=== PATIENT | female | born 1965 | race Caucasian/White ===

== ENCOUNTER 2017-08-24 18:27 | Inpatient (IN) | payer BC ==
[~2017-08-24] VITALS: Ht 152.4 cm; Wt 59.6 kg
--- NOTE | ~2017-08-24 | O ---
[place], [place] OPERATIVE NOTE NAME: [facility]Z [id number] UNIT #: [id number] ROOM: 503 DOCTOR: KAUSHIK ESPINOSA MD BIRTHDATE: [birth year] DOS: 08/25/2017 PREOPERATIVE DIAGNOSIS: Acute appendicitis. POSTOPERATIVE DIAGNOSIS: Acute appendicitis. PROCEDURE: Laparoscopic appendectomy. SURGEON: Kaushik Espinosa MD MEDICAL TRANSCRIPTION SUPERVISOR: EVAN. ANESTHESIA: General with endotracheal intubation. INDICATIONS: This is a 52-year-old lady who was admitted with a history of abdominal pain and was found to have acute appendicitis on the CAT scan. It was decided to take the patient to the operating room for the above-mentioned procedure. The procedure and its complications were explained to the patient in detail preoperatively. Complications that were discussed included but were not limited to bleeding, infection, hematoma/seroma/abscess formation, prolonged postoperative pain, damage to lying vital structures, incisional hernia formation and she agreed to proceed. DESCRIPTION OF PROCEDURE: After identifying the patient, the patient was brought to the operating suite and laid in the supine position. After induction of general anesthesia, timeout procedure was called and a Woody catheter was inserted into the urinary bladder. The patient was then prepped and draped in the usual sterile fashion. Incision below the umbilicus was made in a curvilinear fashion. The skin and the subcutaneous tissue were incised. The fascia was incised and 2 stay sutures with 0 Vicryl were taken on either side. The peritoneum was opened and a 12 mm Eduin port was introduced into the peritoneal cavity and pneumoperitoneum was created. Under direct vision, a left lower quadrant incision of 10 mm and suprapubic incision of 5 mm was made and appropriate size ports were introduced. The patient was placed in a Trendelenburg right side up position in order to better visualize the cecum and the appendix. The appendix was visualized and was found to be acutely inflamed. It was held up with the help of an Endo Vimal forceps and with the help of Endo-JESSICA vascular stapler, the base of the appendix as well as the mesoappendix was stapled across. The appendix was then placed in an EndoCatch bag and removed from the peritoneal cavity and sent for histopathological diagnosis. The appendicular stump was visualized and there was no bleeding seen. Saline was used for irrigation and after irrigation was sucked away, the base of the appendix was visualized again and there was no bleeding visualized. At this point, the suprapubic and the left lower quadrant ports were removed under direct vision and there was no bleeding. The umbilical port was also removed and the 2 stay sutures were tied together. An additional [id number] stitch was taken to close the fascia. Thereafter, the edges of the skin were infiltrated with 1% lidocaine and they were then approximated with the help of 4-0 Vicryl in interrupted subcuticular fashion. Dressing was placed. The patient tolerated the procedure well and was brought back to the recovery room [place], [place] OPERATIVE NOTE NAME: INESSA JIMENEZ UNIT #: [id number] ROOM: [facility] DOCTOR: KAUSHIK ESPINOSA MD BIRTHDATE: [birth year] in stable fashion after the Woody catheter was removed. Dr. Kaushik Espinosa, the attending surgeon, was present throughout the operating case. There were no complications. Kaushik Espinosa MD CM:OPRECORD:OPERATIVE NOTE [id number] KAUSHIK ESPINOSA MD 08/25/17 1106 interface
[2017-08-24 18:31] VITALS: BP 127/77
[2017-08-24] MEDS ORDERED: ZOLOFT100 MG PO (18:33)
[2017-08-24] MEDS ORDERED: WELLBUTRIN SR100 MG PO (18:34)
[2017-08-24] MEDS ORDERED: XANAX0.25 MG PO (18:34)
[2017-08-24 19:15] LABS: BASO % 0.2 % (0.0-1.0); EOS # 0.1 10*3/uL (0.0-0.4); EOS % 0.4 % (1.0-4.0); HEMATOCRIT 38.4 % (37.0-47.0); HEMOGLOBIN 12.7 g/dl (12.0-16.0); LYMPH # 2.1 10*3/uL (1.3-4.4); LYMPH % 13.6 % (27.0-41.0); MEAN CELL VOLUME 91.4 fl (81.0-99.0); MEAN CORPUSCULAR HGB 30.2 pg (27.0-31.0); MEAN CORPUSCULAR HGB CONC 33.1 g/dl (33.0-37.0); MEAN PLATELET VOLUME 10.8 fl (9.6-12.3); MONO # 1.1 10*3/uL (0.1-1.0); MONO % 7.3 % (3.0-9.0); NEUT # 11.9 10*3/uL (2.3-7.9); NEUT % 78.2 % (47.0-73.0); PLATELET COUNT AUTOMATED 234 10*3/uL (130-400); RED CELL DISTRI WIDTH 13.5 % (0-14.5); WHITE BLOOD COUNT 15.2 10*3/uL (4.8-10.8)
[2017-08-24 19:30] LABS: ALBUMIN 3.7 gm/dl (3.1-4.5); ALKALINE PHOSPHATASE 85 U/L (45-117); BUN 13 mg/dl (7-24); CHLORIDE 107 mmol/L (98-107); CREATININE 0.89 mg/dL (0.55-1.02); POTASSIUM 3.4 mmol/L (3.5-5.1); SGOT/AST 14 IU/L (3-35); SGPT/ALT 21 U/L (12-78); SODIUM 138 mmol/L (136-145)
[2017-08-24 20:19] VITALS: BP 115/70
[2017-08-24 20:22] LABS: BILIRUBIN NEGATIVE (NEGATIVE); BLOOD NEGATIVE (NEGATIVE); CLARITY CLEAR (CLEAR); COLOR YELLOW (YELLOW); GLUCOSE NEGATIVE (NEGATIVE); KETONE NEGATIVE (NEGATIVE); LEUKO ESTERASE NEGATIVE (NEGATIVE); NITRITE NEGATIVE (NEGATIVE); SPECIFIC GRAVITY <= 1.005 (1.005-1.030); UROBILINOGEN 0.2 E.U./dl (0.2-1.0)
[2017-08-24 20:28] LABS: BACTERIA 1+; EPITHELIAL CELLS 0-2; RBC 0-2 rbc/hpf (0-2)
[2017-08-24 21:00] VITALS: BP 95/69
[2017-08-24 21:56] VITALS: BP 101/71
[2017-08-24 22:15] VITALS: BP 101/64
[2017-08-24] MEDS ORDERED: LIPITOR10 MG PO (22:55)
[2017-08-25] VITALS (10 sets, daily range): BP systolic 91–103; BP diastolic 55–96
[2017-08-25 06:09] LABS: BASO % 0.3 % (0.0-1.0); EOS # 0.1 10*3/uL (0.0-0.4); EOS % 1.4 % (1.0-4.0); HEMATOCRIT 34.4 % (37.0-47.0); HEMOGLOBIN 11.1 g/dl (12.0-16.0); LYMPH % 22.4 % (27.0-41.0); MEAN CORPUSCULAR HGB 30.6 pg (27.0-31.0); MEAN CORPUSCULAR HGB CONC 32.3 g/dl (33.0-37.0); MEAN PLATELET VOLUME 10.8 fl (9.6-12.3); MONO # 0.7 10*3/uL (0.1-1.0); MONO % 8.3 % (3.0-9.0); NEUT # 5.9 10*3/uL (2.3-7.9); NEUT % 67.4 % (47.0-73.0); PLATELET COUNT AUTOMATED 188 10*3/uL (130-400); RED BLOOD COUNT 3.63 10*6/uL (4.10-5.10); RED CELL DISTRI WIDTH 13.7 % (0-14.5); WHITE BLOOD COUNT 8.8 10*3/uL (4.8-10.8)
[2017-08-25 06:16] LABS: MEAN CELL VOLUME 94.8 fl (81.0-99.0)
[2017-08-25 06:23] LABS: BUN 8 mg/dl (7-24); CHLORIDE 112 mmol/L (98-107); CHOLESTEROL 159 mg/dL (<200); CREATININE 0.78 mg/dL (0.55-1.02); HDL CHOLESTEROL 60 mg/dl (40-60); LDL CHOLESTEROL 82 mg/dL (9-159); POTASSIUM 3.8 mmol/L (3.5-5.1); SODIUM 142 mmol/L (136-145); TRIGLYCERIDES 87 mg/dl (<150); VLDL CHOLESTEROL 17 mg/dL (6-40)
[2017-08-25 06:31] LABS: THYROID STIM HORMONE (HS) 0.879 uIU/ml (0.358-4.75)
[2017-08-25 06:59] LABS: ACT PARTIAL THROMBO TIME 29.1 SECONDS (20.8-31.5)
[2017-08-25 07:19] LABS: VITAMIN D, 25-HYDROXY 9.8 ng/mL (30-100)
[2017-08-25] MEDS ORDERED: Zofran4 MG PO (14:55)
== END 2017-08-25 17:27 | disposition home or self-care (01) | DRG 343 ==
LOC: ED → 5E 21:44 → EDHOLD 21:44 → 5E 21:59
PROVIDERS: Internal Medicine; Nurse Practitioner Family
PROC: 0DTJ4ZZ Resection of Appendix, Percutaneous Endoscopic Approach (ICD-10-PCS; principal; 2017-08-25)
DX: K35.80 Unspecified acute appendicitis (principal); E78.00 Pure hypercholesterolemia, unspecified; F17.200 Nicotine dependence, unspecified, uncomplicated; F41.1 Generalized anxiety disorder; F32.9 Major depressive disorder, single episode, unspecified; Z90.710 Acquired absence of both cervix and uterus

== ENCOUNTER 2020-01-14 23:45 | Emergency (ER) | payer BC ==
[~2020-01-14] VITALS: Ht 152.4 cm; Wt 65.8 kg
[~2020-01-14 23:45] MED LIST: LIPITOR10 MG PO; WELLBUTRIN SR100 MG PO; XANAX0.25 MG PO; ZOLOFT100 MG PO; Zofran4 MG PO
[2020-01-15 00:30] LABS: BASO % 0.5 % (0.0-1.0); EOS # 0.1 10*3/uL (0.0-0.4); EOS % 1.8 % (1.0-4.0); HEMATOCRIT 39.3 % (37.0-47.0); LYMPH # 2.4 10*3/uL (1.3-4.4); LYMPH % 30.2 % (27.0-41.0); MEAN CELL VOLUME 93.8 fl (81.0-99.0); MEAN CORPUSCULAR HGB 30.1 pg (27.0-31.0); MEAN CORPUSCULAR HGB CONC 32.1 g/dl (33.0-37.0); MEAN PLATELET VOLUME 10.2 fl (9.6-12.3); MONO # 0.5 10*3/uL (0.1-1.0); MONO % 6.4 % (3.0-9.0); NEUT # 4.7 10*3/uL (2.3-7.9); NEUT % 60.8 % (47.0-73.0); PLATELET COUNT AUTOMATED 328 10*3/uL (130-400); RED BLOOD COUNT 4.19 10*6/uL (4.10-5.10); RED CELL DISTRI WIDTH 13.1 % (0-14.5); WHITE BLOOD COUNT 7.8 10*3/uL (4.8-10.8)
[2020-01-15 00:40] LABS: INTERNATIONAL NORM RATIO 0.9 (2.0-3.5)
[2020-01-15 00:46] LABS: ACETAMINOPHEN (TYLENOL) < 5.0 ug/ml (10-30); ALBUMIN 3.6 gm/dl (3.1-4.5); ALKALINE PHOSPHATASE 101 U/L (45-117); BUN 13 mg/dl (7-24); CHLORIDE 110 mmol/L (98-107); CREATININE 0.72 mg/dL (0.55-1.02); LIPASE 110 U/L (73-393); POTASSIUM 3.4 mmol/L (3.5-5.1); SGOT/AST 19 IU/L (3-35); SGPT/ALT 29 U/L (12-78); SODIUM 138 mmol/L (136-145); TOTAL PROTEIN 7.2 gm/dL (6.4-8.2); TROPONIN I < 0.015 ng/ml (<0.045)
[2020-01-15 00:51] LABS: CLARITY CLEAR (CLEAR); COLOR STRAW (YELLOW)
[2020-01-15 00:54] LABS: BILIRUBIN NEGATIVE (NEGATIVE); BLOOD NEGATIVE (NEGATIVE); GLUCOSE NEGATIVE (NEGATIVE); KETONE NEGATIVE (NEGATIVE); LEUKO ESTERASE 1+ (NEGATIVE); NITRITE NEGATIVE (NEGATIVE); PH 5.5 (5.0-9.0); SPECIFIC GRAVITY 1.005 (1.005-1.030); UROBILINOGEN 0.2 E.U./dl (0.2-1.0)
[2020-01-15 00:55] LABS: URINE AMPHETAMINES < 1000 (1000ng/ml); URINE BARBITURATES < 200 (200ng/ml); URINE BENZODIAZEPINES < 200 (200ng/ml); URINE CANNABINOIDS (THC) < 50 (50ng/ml); URINE COCAINE < 300 (300ng/ml); URINE METHADONE < 300 (300ng/ml); URINE OPIATES < 300 (300ng/ml); URINE PHENCYCLIDINE < 25 (25ng/ml)
[2020-01-15 00:59] LABS: BACTERIA TRACE; EPITHELIAL CELLS 0-2; RBC 0-2 rbc/hpf (0-2)
[2020-01-15] MEDS ORDERED: PROTONIX40 MG PO (02:01)
== END 2020-01-15 02:16 | disposition home or self-care (01) ==
LOC: ED 23:45
PROVIDERS: Emergency Medicine Emergency Medical Services
DX: K29.70 Gastritis, unspecified, without bleeding (principal); K21.9 Gastro-esophageal reflux disease without esophagitis; E78.00 Pure hypercholesterolemia, unspecified; F17.200 Nicotine dependence, unspecified, uncomplicated; Z79.899 Other long term (current) drug therapy

== ENCOUNTER → 2021-05-29 | Outpatient (CLI) | payer BC ==
[~2021-05-29] MED LIST changes: +PROTONIX40 MG PO
== END | disposition home or self-care (01) ==
LOC: COVID19 16:14
PROVIDERS: ATTEND Internal Medicine
DX: Z11.52 Encounter for screening for COVID-19 (principal)